=== PATIENT | male | born 1960 | race Hispanic/Latino ===

== ENCOUNTER 2018-05-13 07:11 | Outpatient (CLI) | payer OTHER | END 2018-05-13 07:12 | disposition home or self-care (01) | LOC: C.LAB 07:11 | DX: E29.1 Testicular hypofunction (principal) ==

== ENCOUNTER 2018-06-28 12:57 | Outpatient (CLI) | payer OTHER | END 2018-06-28 12:58 | disposition home or self-care (01) | LOC: C.RADH 12:57 | DX: Z57.39 Occupational exposure to other air contaminants (principal) ==